=== PATIENT | female | born 1990 | race Caucasian/White ===

== ENCOUNTER 2022-09-12 18:50 | Inpatient (IN) ==
--- NOTE | 2022-09-12 19:29 | Procedure Note ---
Procedure Note Date of Service September 12, 2022 Note monitoring was used to ensure reassuring status. The patient was verbally consented for placement of a diaz for cervical ripening, with discussion of risks, benefits and alternatives. All her questions were answered. Her legs were placed in lithotomy position. A lubricated, gloved hand was used to examine the cervix which was 2/80/-2. A stylet was lubricated and inserted into a diaz catheter to give it stiffness, and the diaz catheter was then advanced along my fingers until it reached the external cervical os. The diaz was then fed forward off of the stylet, which was itself never moved beyond the external os, such that the soft catheter advanced into the uterine cavity outside of the amnion until the balloon was definitely above the internal cervical os. The balloon was then inflated using sterile water to 30cc volume. Gentle traction was used to seat the balloon downward against the internal cervical os. My hand and the stylet were removed from the vagina, and the diaz was secured to the patient's leg with a standard diaz holding sticker. There was no significant bleeding or leakage of fluid. The heart tones remained reassuring after this process, which the patient tolerated well. Coding
[2022-09-13] MEDS ORDERED: OXYTOCIN 30 UNITS/500 ML BAG IV PRN ×3 (05:15→14:19)
[2022-09-13] MEDS ORDERED: LIDOCAINE 1% LOCAL 20 ML VIAL INFIL PRN (05:15)
[2022-09-13] MEDS: LACTATED RINGER'S 1,000 ML IV PRN ×2 (05:39→06:37)
[2022-09-13] MEDS ORDERED: ePHEDrine sulfate 50 MG/ML AMP ONE (05:55)
[2022-09-13 05:56] LABS: Hematocrit (blood only) 36.2 % (37.0-47.0); Hemoglobin 12.5 g/dl (12.0-16.0); Mean Corpuscular Hemoglobin 30.6 pg (25.0-34.0); Mean Corpuscular Hgb Conc 34.5 g/dL (32.0-36.0); Mean Corpuscular Volume 88.7 fL (80.0-100.0); Mean Platelet Volume 11.1 fL (9.4-12.4); Platelet Count 206 K/uL (130-400); RDW Coefficient of Variation 13.4 % (11.5-14.5); RDW Standard Deviation 43.5 fL (36.4-46.3); Red Blood Count 4.08 M/uL (4.20-5.40); White Blood Count 11.29 K/ul (4.8-10.8)
[2022-09-13] MEDS ORDERED: LIDOCAINE 2%/EPINEPHRINE 1:200,000 20 ML PF ONE (05:56)
[2022-09-13] MEDS ORDERED: BUPIVACAINE 0.25% PF 30 ML VIAL ONE (05:56)
[2022-09-13] MEDS ORDERED: fentaNYL 2MCG/ML ROPIVACAINE 1.25MG/ML 100 ML BAG EPI ONE (05:56)
[2022-09-13] MEDS ORDERED: SODIUM CHLORIDE 0.9% PF INJ 10 ML VIAL ONE (05:56)
[2022-09-13] MEDS ORDERED: fentaNYL citrate PF 100 MCG/2 ML VIAL ONE (05:56)
[2022-09-13] MEDS ORDERED: BUPIVACAINE 0.25% PF 30 ML VIAL EPI STA (07:06)
[2022-09-13] MEDS ORDERED: NALOXONE HCL 1 MG in SODIUM CHLORIDE 0.9% 1000ML 1,000 ML IV PRN (07:06)
[2022-09-13] MEDS ORDERED: fentaNYL citrate PF 100 MCG/2 ML VIAL EPI PRN (07:06)
[2022-09-13] MEDS ORDERED: SODIUM CHLORIDE 0.9% PF INJ 10 ML VIAL EPI STA (07:06)
[2022-09-13] MEDS ORDERED: ePHEDrine sulfate 50 MG/ML AMP IV PRN (07:06)
[2022-09-13] MEDS ORDERED: LIDOCAINE 2%/EPINEPHRINE 1:200,000 20 ML PF EPI STA (07:06)
[2022-09-13] MEDS ORDERED: NALOXONE HCL 0.4 MG/1 ML VIAL/CARP IV PRN (07:06)
[2022-09-13] MEDS ORDERED: BUPIVACAINE 0.25% PF 30 ML VIAL EPI PRN (07:06)
[2022-09-13] MEDS ORDERED: NALBUPHINE HCL INJ 10 MG/ML AMP IV PRN (07:06)
[2022-09-13] MEDS ORDERED: diphenhydrAMINE 50 MG/ML VIAL IV PRN (07:06)
[2022-09-13] MEDS ORDERED: LIDOCAINE 2% MPF LOCAL 5 ML VIAL EPI PRN (07:06)
[2022-09-13] MEDS ORDERED: ROPIVACAINE 0.5% PF 5 MG/ML 20 ML VIAL EPI PRN (07:06)
[2022-09-13] MEDS ORDERED: SODIUM CHLORIDE 0.9% PF INJ 10 ML VIAL EPI PRN (07:06)
[2022-09-13] MEDS ORDERED: fentaNYL citrate PF 100 MCG/2 ML VIAL EPI STA (07:06)
[2022-09-13] MEDS ORDERED: fentaNYL 2MCG/ML ROPIVACAINE 1.25MG/ML 100 ML BAG EPI PRN (07:06)
--- NOTE | 2022-09-13 07:08 | Anesthesiology Consultation ---
Date of Service September 13, 2022 Assessment & Plan Chart Review Chart Review: Patient NOT seen in Pre Admission Testing and Acceptable Risk for Labor Epidural Consults Requested none ASA ASA2 Proposed Anesthesia Anesthesia Type: Labor Epidural Risk / Benefits Reviewed With: PT / POA / Parent / Guardian, Accepts Plan and Informed Consent Obtained History Height/Weight Height: 5 ft 7 in Weight: 94.347 kg Allergies Allergy/AdvReac Type Severity Reaction Status Date / Time Sulfa (Sulfonamide Allergy Hives Verified 09/10/22 10:25 Antibiotics) Medications Home Medications Medication Instructions Recorded Confirmed Last Taken prenat.vits,isaura,aki-[id number] 1 tab PO DAILY 07/12/22 09/12/22 09/12/22 albuterol 90 mcg/actuation aerosol 90 mcg inhalation 09/12/22 Unknown inhaler magnesium 30 mg tablet 30 mg PO DAILY 09/12/22 09/12/22 09/12/22 Active Medications Generic Name Dose Route Start Last Admin Trade Name Freq PRN Reason Stop Dose Admin Lactated Ringer's 1,000 mls @ 125 mls/hr 09/13/22 05:15 09/13/22 06:42 Lr IV 09/15/22 05:14 125 mls/hr .Q8H PRN Infusion L&D Protocol Protocol Past Medical History Medical History (Updated 09/12/22 @ 19:15 by Leatha Richmond) Asthma History of chicken pox Exercise / Class Metabolic Activity II 4-5 Yardwork/Stairs/Walk up hill Past Family History Family History (Updated 07/12/22 @ 09:03 by Jayna Oleary) Denies family history of Ovarian cancer Breast cancer Colorectal cancer Past Surgical History Surgical History (Updated 07/12/22 @ 09:15 by Jayna Oleary) S/P wisdom tooth extraction Past Anesthesia History No Hx of Anesthesia Complications and No Family Hx of Anesthesia Complications History of PONV No Hx of PONV and No Hx of Motion Sickness Social History Smoking Status: Never smoker Do You Dip or Chew Tobacco: No Hx Alcohol Use: No Hx Substance Use: No Physical Exam Vital Signs Last Vital Signs Temp 37.0 C 09/13/22 05:48 Pulse 80 09/13/22 07:06 Resp 18 09/12/22 19:08 BP 135/65 09/13/22 07:04 Pulse Ox 96 09/13/22 07:06 ENMT Mouth: no dentition abnormality Thyromental Distance: > or= 3.5 Finger Breadths Mallampati Class: II Neck normal visual inspection Respiratory normal respiratory effort Auscultation: lungs clear to auscultation bilaterally Cardiovascular Rate/Rhythm: regular rate and regular rhythm Psychiatric Orientation: alert Testing Laboratory Results 09/13/22 05:42
--- NOTE | 2022-09-13 07:34 | History & Physical Report ---
Date of Service September 13, 2022 Assessment & Plan (1) Encounter for induction of labor: Plan: Patient is a 32 yo at 41 0/7 WGA presenting to labor and delivery for induction d/t post dates. Blood type: A+, GBS neg, rubella immune Diaz balloon placed last night and still in place this AM Plan to start oxytocin and rupture membranes later if necessary Proceed with labor and vaginal delivery Admission and Anticipated Discharge Date Admission Date: September 13, 2022 History of Present Illness Chief Complaint: induction of labor Primary Care Provider: Unknown Unknown Patient is a 32 yo female currently at 41 0/7 WGA with an WILFRED 09/06/2022 as determined by US who is here for induction of labor. Her was largely uncomplicated. 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 Pt describes painful contractions that are occurring every 4-5 minutes; movement present; minimal fluid loss, pt describes as "trickling" w/o gushing of fluid; denies bloody show External FHT and external uterine monitors used; category 1 tracing; normal FHT variability Had regular appointments with OB. Transferred care from [place] at 32 weeks. Labs: (02/11/2022) Blood type: A + Antibody screen: neg Hgb: 12.5 (today) Hct: 36.2 (today) WBC: 11.29 (today) Plt: 206 (today) Rubella: immune VDRL/RPR: neg Gonorrhea: neg Chlamydia: neg HIV: neg HbSAg: neg GBS: neg Other screens: cff-DNA: low risk CF: neg SMA: neg Allergies Allergy/AdvReac Type Severity Reaction Status Date / Time Sulfa (Sulfonamide Allergy Hives Verified 09/10/22 10:25 Antibiotics) Home Medications Medication Instructions Recorded Confirmed Type prenat.vits,isaura,dnc-[id number] 1 tab PO DAILY 07/12/22 09/12/22 History albuterol 90 mcg/actuation aerosol 90 mcg inhalation 09/12/22 History inhaler magnesium 30 mg tablet 30 mg PO DAILY 09/12/22 09/12/22 History Patient History Medical History (Updated 09/13/22 @ 07:31 by Cassi Wetzel DO) Asthma History of chicken pox Surgical History (Updated 07/12/22 @ 09:15 by Jayna Oleary) S/P wisdom tooth extraction Family History (Updated 07/12/22 @ 09:03 by Jayna Oleary) Denies family history of Ovarian cancer Breast cancer Colorectal cancer Social History (Updated 07/12/22 @ 09:04 by Jayna Oleary) Smoking Status: Never smoker Do You Dip or Chew Tobacco: No; Hx Alcohol Use: No Hx Substance Use: No Preferred Language: Portuguese Communication Ability: Effective Services Mgr Required: No Beliefs That Will Affect Care: None marital status: marital status details: Chance Saenz (38) [phone] Current Living Situation: Spouse and Family Current Living Situation Comment: lives with spouse, son, cats-spouse changing litter current occupational status: unemployed current occupation: homemaker Other Information That Helps Us Care for You: No Feels Safe at Home: Yes Safety Concerns: Feels Safe At This Time Assistive Devices: Contacts and Glasses Review of Systems Denies fever, chills, sweats. Denies SOB, difficulty breathing, chest pain, palpitations, and chest pressure. Denies breast pain. Denies dysuria. Denies headache or changes in vision. Physical Exam Physical Exam: General: Alert and oriented. No acute distress CV: Regular rate and rhythm. No murmurs. Respiratory: CTA bilaterally. No rhonchi, wheezes, or crackles. No increased work of breathing. Abdomen: Gravid; Soft, nontender upon palpation Pelvic: pelvic exam per attending attestation Lower extremities: Trace bilateral LE edema. No deep calf pain. Results & Data Vital Signs (Past 12 Hours) Vital Signs Temp Pulse BP Pulse Ox 09/13/22 04:38 75 133/80 09/13/22 07:16 79 96 09/13/22 07:11 75 96 09/13/22 07:10 68 131/61 09/13/22 07:07 80 139/62 09/13/22 07:06 80 96 09/13/22 07:04 72 135/65 09/13/22 07:01 79 132/66 96 09/13/22 06:58 85 133/77 09/13/22 06:56 68 97 09/13/22 06:55 78 140/82 09/13/22 06:51 86 97 09/13/22 06:52 80 139/89 05/22/23 06:46 88 98 09/13/22 06:41 98 H 98 09/13/22 06:38 77 94 09/13/22 06:36 81 99 09/13/22 06:31 82 95 09/13/22 06:26 82 97 09/13/22 06:21 73 93 09/13/22 06:18 79 94 09/13/22 06:16 91 H 96 09/13/22 06:11 82 96 09/13/22 06:10 78 93 09/13/22 06:06 85 96 09/13/22 06:01 86 96 09/13/22 05:48 37.0 C 09/13/22 04:37 75 133/80 Code Status & VTE Plan VTE Prophylaxis Plan VTE Prophylaxis will be ordered: No Supervising Physician Co-Signing Physician Notes Resident Physician Supervision Note: I interviewed and examined the patient. Discussed with Dr. Wetzel and agree with findings and plan as documented in the note. Any exceptions or clarifications are listed here: Patient is a patient that had a diaz bulb last night and presented in the wee hours of the morning with pain. This was prior to be taking over care of the patient. She was very painful , bulb still in place and received an epidural prior to my arrival. Induction for postdates. She is now comfortable. Nursing just pulled on the diaz and it was removed. cx per nursing was 4/80/-2. Pitocin augmentation was started. With bulb in the contractions were every 3-4 minutes. Now that the bulb is out, the contractions have spaced a bit. fht in the 130s with mod variability , accels present. Rare variable noted with a few contractions--had about three. Now they have resolved and the strip is category one. Plan arom when able . anticipate . Documented By: Guera Díaz MD, FACOG Resident Activity Tracking Resident Involvement: Resident Care Provided Care Provided: OB Delivery
--- NOTE | 2022-09-13 12:45 | Labor Progress Brief Note ---
Date of Service September 13, 2022 Subjective comfortable w/ epidural Assessment & Plan (1) Encounter for induction of labor: Plan: 32 yo at 41 wga admitted for iol VSS Fetus cat 2 but reassuring w/ mod variablity Labor - pit at 11, now complete and s/p arom of forebag. Will labor down as she does not feel pressure GBS neg epidural in place Admission and Anticipated Discharge Date Admission Date: September 13, 2022 Physical Exam Genitourinary: Manual OB Exam: + cervical dilation 10 cm, + cervical effacement 100%, + station + 1 and + amniotic fluid (arom forebag) OB Exam Monitor Tracing: + external FHT monitor used, + external uterine monitor used and + category II Results & Data Vital Signs (Past 12 Hours) Vital Signs Temp Pulse Resp BP Pulse Ox 09/13/22 07:15 98.1 F 20 09/13/22 04:38 75 133/80 09/13/22 12:43 153 H 156/86 H 09/13/22 12:41 80 97 09/13/22 12:36 76 96 09/13/22 12:31 74 94 09/13/22 12:26 88 97 09/13/22 12:25 73 138/82 09/13/22 12:21 69 97 09/13/22 12:16 65 98 09/13/22 12:11 71 96 09/13/22 12:10 78 130/70 09/13/22 12:06 73 96 09/13/22 12:01 81 97 09/13/22 11:56 72 96 09/13/22 11:55 76 128/68 09/13/22 11:51 71 96 09/13/22 11:46 71 96 09/13/22 11:41 97 09/13/22 11:41 72 09/13/22 11:41 68 126/69 09/13/22 11:36 95 09/13/22 11:36 78 09/13/22 11:36 73 94 09/13/22 11:31 98.1 F 72 18 95 09/13/22 11:26 74 129/67 96 09/13/22 11:21 74 97 09/13/22 11:16 72 96 09/13/22 11:11 71 119/59 L 96 09/13/22 11:06 86 95 05/22/23 11:01 83 20 98 05/22/23 10:56 86 97 05/22/23 10:55 78 104/56 L 05/22/23 10:52 79 94 05/22/23 10:51 83 95 05/22/23 10:47 77 94 05/22/23 10:46 88 95 05/22/23 10:42 81 104/54 L 05/22/23 10:41 81 96 05/22/23 10:36 86 96 05/22/23 10:31 75 20 95 05/22/23 10:26 96 05/22/23 10:26 72 05/22/23 10:26 75 128/67 05/22/23 10:21 73 96 05/22/23 10:16 75 95 05/22/23 10:13 75 94 05/22/23 10:11 73 95 05/22/23 10:10 86 124/74 05/22/23 10:06 74 96 05/22/23 10:01 78 20 95 05/22/23 10:02 76 94 05/22/23 09:56 94 05/22/23 09:56 78 05/22/23 09:56 79 94 05/22/23 09:55 78 119/66 05/22/23 09:51 75 95 05/22/23 09:49 76 94 05/22/23 09:46 74 95 05/22/23 09:41 77 95 05/22/23 09:40 88 118/62 05/22/23 09:36 80 93 05/22/23 09:33 73 94 05/22/23 09:31 70 95 05/22/23 09:26 78 95 05/22/23 09:27 76 94 05/22/23 09:25 75 127/63 05/22/23 09:21 78 94 05/22/23 09:19 80 94 05/22/23 09:16 75 20 96 05/22/23 09:11 82 96 05/22/23 09:10 90 125/66 05/22/23 09:06 81 94 05/22/23 09:02 79 93 05/22/23 09:01 98.2 F 76 20 96 05/22/23 08:56 96 05/22/23 08:56 82 05/22/23 08:56 81 123/72 05/22/23 08:51 93 H 98 05/22/23 08:46 84 20 95 05/22/23 08:41 91 H 117/66 98 05/22/23 08:36 88 96 0522/23 08:31 82 20 95 0522/23 08:26 120 H 94 05/22/23 08:25 86 115/59 L 0522/23 08:21 79 97 0522/ 08:16 113 H 20 97 0522/23 08:11 94 H 96 0522/23 08:10 78 122/64 0522/23 08:06 77 96 0522/23 08:01 93 H 20 96 0522/23 07:56 95 0522/23 07:56 81 0522/23 07:56 85 125/66 0522/23 07:51 83 95 0522/23 07:46 78 20 96 0522/23 07:41 77 95 0522/23 07:40 90 124/70 0522/23 07:36 76 96 0522/23 07:32 80 93 0522/23 07:31 83 20 95 0522/23 07:26 78 128/72 95 05/22/23 07:21 82 95 0522/23 07:20 85 94 0522/23 07:16 79 20 96 0522/23 07:11 75 96 05/22/23 07:10 68 131/61 0522/23 07:07 80 139/62 0522/23 07:06 80 96 0522/23 07:04 72 135/65 0522/23 07:01 79 132/66 96 05/22/23 06:58 85 133/77 0522/23 06:56 68 97 05/22/23 06:55 78 140/82 05/22/23 06:51 86 97 05/22/23 06:52 80 139/89 0522/23 06:46 88 98 05/22/23 06:41 98 H 98 05/22/23 06:38 77 94 05/22/23 06:36 81 99 05/22/23 06:31 82 95 05/22/23 06:26 82 97 05/22/23 06:21 73 93 05/22/23 06:18 79 94 05/22/23 06:16 91 H 96 09/13/22 06:11 82 96 09/13/22 06:10 78 93 09/13/22 06:06 85 96 09/13/22 06:01 86 96 09/13/22 05:48 98.6 F 09/13/22 04:37 75 133/80 Coding Level of Care Code None Diagnoses Encounter for induction of labor Z34.90
--- NOTE | 2022-09-13 14:05 | Delivery Summary ---
Vaginal Delivery Summary Date of Service September 13, 2022 Vaginal Delivery Summary and 2nd Degree LAC PREOPERATIVE DIAGNOSIS: 1. Single intrauterine at 41 wga 2. Late term IOL 3. Fragile X Intermediate Carrier POSTOPERATIVE DIAGNOSIS: 1. Single intrauterine at 41 wga 2. Late term IOL 3. Fragile X Intermediate Carrier 4. Delivered PROCEDURE: 1. Normal spontaneous vaginal delivery. SURGEON: Gauri Bernardo MD ANESTHESIA: Epidural. ESTIMATED BLOOD LOSS: 300 mL FLUIDS: Continuous LR. URINE OUTPUT: None. COMPLICATIONS: None. CONDITION: Stable. INDICATIONS: 32 yo at 41 wga presented for late term IOL. Diaz bulb was placed last evening. Overnight contractions worsened and she presented at which time she received an epidural. Diaz bulb was noted to be out and approximately 4cm. Pitocin was started and she underwent SROM. She was checked and found to be complete w/ a forebag. Forebag was ruptured and shortly after desired to push. FINDINGS: A viable female , weight pending with Apgars of 8 and 9 at 1 and 5 minutes respectively. SPECIMEN: Cord blood OPERATIVE REPORT: The patient progressed to 10 cm, 100% effaced and +2 station, pushed over intact perineum with anesthesia to deliver a viable female , weight and Apgars as above. Head of delivered in KAY position. Nuchal cord was noted and delivered through. Body and shoulders were delivered without difficulty with meconium noted following. was delivered to maternal abdomen and nursing staff. Delayed cord clamping was performed for 60 seconds. Cord was clamped and cut. Cord blood was obtained. Placenta delivered spontaneously intact with 3-vessel cord. IV oxytocin and fundal massage were given for excellent hemostasis. Vagina, cervix, perineum, and placenta were inspected. A second degree laceration was noted and repaired using 3-0 Vicryl. Sponge and needle counts correct x2. No sponges were left behind. Mother and stable in immediate period. [facility] Vaginal Delivery Charge Vaginal Delivery Codes: 26053 global code for the antepartum, delivery, and post- Delivery Type Details: and 2nd Degree LAC
--- NOTE | 2022-09-13 14:07 | Anesthesia Procedure Note ---
Date of Service September 13, 2022 Anesthesia Post Epidural Note Vital Signs Vital Signs: Temp Pulse Resp BP Pulse Ox 98.1 F 86 20 153/66 H 93 09/13/22 11:31 09/13/22 14:04 09/13/22 12:01 09/13/22 14:04 09/13/22 13:32 Pain Intensity Abdomen: Pain Intensity: 3 Notes Mental Status: alert / awake / arousable and participated in evaluation Nausea / Vomiting: adequately controlled Pain: adequately controlled Airway Patency, RR, SpO2: stable & adequate BP & HR: stable & adequate Hydration State: stable & adequate Neuraxial Anesthesia: was administered and sensory block is resolving Anesthetic Complications: no major complications apparent and Pt Satisfied with anesthetic care Epidural: Removed without complications and With tip intact
[2022-09-13] MEDS ORDERED: DIPHTHERIA/TETANUS/PERTUSSIS Vaccine (Tdap, Age 7+yrs) 0.5mL SYR/VL IM ONE (14:19)
[2022-09-13] MEDS ORDERED: ACETAMINOPHEN 325 MG TAB PO PRN (14:19)
[2022-09-13] MEDS ORDERED: bisacodyL 10 MG SUPP PR PRN (14:19)
[2022-09-13] MEDS ORDERED: HYDROCORTISONE ACETATE 25 MG SUPP PR PRN (14:19)
[2022-09-13] MEDS ORDERED: BENZOCAINE 20% AER SPR 82.5 GM CAN EXT PRN (14:19)
[2022-09-13] MEDS: IBUPROFEN 600 MG TAB PO PRN (20:02)
[2022-09-13] MEDS: DOCUSATE SODIUM 100 MG CAP PO SCH (20:02)
[2022-09-14] MEDS: IBUPROFEN 600 MG TAB PO PRN ×2 (04:02→08:42)
--- NOTE | 2022-09-14 05:26 | Obstetrical Progress Note ---
Date of Service <Cassi Burrows DO Rashard - Last Filed: 09/14/22 06:12> September 14, 2022 Assessment & Plan <Cassi MimsDO ranjana - Last Filed: 09/14/22 06:12> (1) care following vaginal delivery: Patient is PPD 1 s/p and doing well. - Eating well, voiding well, ambulating well - Vitals reviewed and within normal limits - Pain well controlled with analgesics - OOB, ambulation, diet progression as tolerated - Blood type: A+, GBS neg, rubella immune - Plan to discharge today - After discharge, 6 [address] follow up with Dr. Bernardo <Gauri Bernardo MD - Last Filed: 09/14/22 07:20> (1) care following vaginal delivery: Subjective <Cassi MimsDO ranjana - Last Filed: 09/14/22 06:12> Patient is a 32 yo female who is now PPD #1 following spontaneous vaginal delivery at 41 0/7 weeks. Reports feeling well this morning. She endorses 2-3/10 pain well managed on analgesics. Voiding without issue. Tolerating regular meals overnight and able to ambulate. She has passed gas. Persistent lochia with some improvement this morning. Currently breast feeding. Review of Systems Denies fever, chills, sweats. Denies SOB, difficulty breathing, chest pain, palpitations, and chest pressure. Denies breast pain. Denies dysuria. Denies headache or changes in vision. Physical Exam <Cassi ChapinAnahy Wetzel DO - Last Filed: 09/14/22 06:12> General: Alert and oriented. No acute distress. CV: Regular rate and rhythm. No murmurs. Respiratory: CTA bilaterally. No rhonchi, wheezes, or crackles. No increased work of breathing. Abdomen: Positive bowel sounds. Soft, nontender, non distended. Uterus: Fundus firm and palpable 3 cm below the umbilicus. Lower extremities: No LE edema. No deep calf pain. Results & Data <Cassi ChapinAnahy Wetzel DO - Last Filed: 09/14/22 06:12> Vital Signs (Past 12 Hours) Vital Signs Temp Pulse Resp BP Pulse Ox O2 Del Method 09/13/22 19:45 37 C 84 18 115/72 98 Room Air <Gauri Bernardo MD - Last Filed: 09/14/22 07:20> Co-Signing Physician Notes Resident Physician Supervision Note: I interviewed and examined the patient. Discussed with Dr. Wetzel and agree with findings and plan as documented in the note. Any exceptions or clarifications are listed here: PP1 s/p , doing well. VSS, exam benign and wnl. Desires d/c today, ok to do so Documented By: Gauri Bernardo MD Resident Activity Tracking <Cassi Wetzel DO - Last Filed: 09/14/22 06:12> Resident Involvement: Resident Care Provided Care Provided: OB Delivery
[2022-09-14] MEDS ORDERED: FERROUS SULFATE 325 MG TAB PO SCH (08:00)
[2022-09-14] MEDS ORDERED: PRENATAL VITAMIN 1 TAB PO SCH (08:00)
[2022-09-14] MEDS: DOCUSATE SODIUM 100 MG CAP PO SCH (08:42)
[2022-09-14] MEDS ORDERED: bisacodyL 5 MG TABEC PO SCH (20:00)
== END 2022-09-14 15:18 | disposition home or self-care (01) | DRG 807 ==
LOC: OPB 18:50 → 4S1 18:51 → OPB 19:54 → 4S1 09-13 04:25 → 4E2 09-13 17:40